=== PATIENT | female | born 1945 | race Caucasian/White ===

== ENCOUNTER → 2024-06-17 | Outpatient (CLI) | payer OTHER, SELFPAY ==
[2024-06-17 12:37] LABS: Glucose Estimated Average 103 mg/dL (80-131); Hemoglobin A1C 5.2 % Hgb (4.8-6.0)
[2024-06-17 12:39] LABS: Basophils # (Auto) 0.1 Thou/mm3 (0.0-0.2); Basophils % (Auto) 2 % (0-2.5); Eosinophils # (Auto) 0.5 Thou/mm3 (0.0-0.5); Eosinophils % (Auto) 7 % (0-10); Hematocrit 31.1 % (36.0-46.0); Hemoglobin 10.7 g/dL (12.0-16.0); Immature Granulocytes % (Auto) 0 % (0-0); Immature Granulocytes Auto 0.02 Thou/mm3 (0.00-0.00); Lymphocytes % (Auto) 27 % (10-50); Mean Corpuscular HGB Conc 34.4 g/dl (31.0-37.0); Mean Corpuscular Hemoglobin 32.1 pg (25.0-35.0); Mean Corpuscular Volume 93 fL (80-100); Monocytes # (Auto) 0.7 Thou/mm3 (0.0-0.8); Monocytes % (Auto) 10 % (0-12); Neutrophils # (Auto) 3.9 Thou/mm3 (1.8-7.7); Neutrophils % (Auto) 53 % (37-80); Nucleated Red Blood Cell % 0 /100 WBC (0); Platelet Count 236 Thou/mm3 (140-440); RDW Standard Deviation 46.2 fL (36.4-46.3); Red Blood Count 3.33 Miln/mm3 (4.00-5.20); White Blood Count 7.4 Thou/mm3 (3.6-11.0)
[2024-06-17 12:43] LABS: Collection Type, Urine Clean Catch
[2024-06-17 12:58] LABS: Alanine Aminotransferase 13 U/L (10-49); Albumin, Serum 4.5 gm/dL (3.4-4.8); Albumin/Globulin Ratio 2.1 (1.2-2.2); Alkaline Phosphatase 83 U/L (46-116); Anion Gap 9 (7-16); Aspartate Amino Transferase 17 U/L (0-34); BUN/Creatinine Ratio 20 Ratio (12-20); Bilirubin,Total 0.6 mg/dL (0.3-1.2); Blood Urea Nitrogen 20 mg/dL (9-23); Calcium 9.4 mg/dL (8.3-10.6); Calcium (Corrected) 9.4 mg/dL (8.5-10.1); Carbon Dioxide 24.9 mMol/L (20.0-31.0); Cardiac Risk Estimate 1.9 RATIO (3.7-5.6); Chloride 108 mMol/L (98-107); Cholesterol 152 mg/dL (132-200); Globulin 2.1 gm/dL (2.3-3.5); Glucose 88 mg/dL (74-106); HDL Cholesterol 79 mg/dL (40-60); LDL Cholesterol,Calculated 59 mg/dL (0-130); Osmolality,Calculated 284 (275-295); Potassium 4.1 mMol/L (3.4-5.1); Sodium 142 mMol/L (136-145); Total Protein 6.6 gm/dL (5.7-8.2); Triglycerides 68 mg/dL (30-150); eGFR 57 See Note
[2024-06-17 13:27] LABS: Bilirubin,Urine Negative (Negative); Blood,Urine Negative (Negative); Clarity,Urine Clear (Clear/Hazy); Color,Urine Lt-Yellow (Lt Yel-Yel); Glucose, Urine Negative (Negative); Ketones,Urine Negative (Negative); Leukocyte Esterase,Urine Positive (Negative); Nitrite,Urine Negative (Negative); Protein,Urine Negative (Neg - Trace); RBC,Urine 1 /hpf (0-3); Specific Gravity,Urine 1.013 (1.001-1.035); Squamous Epithelial Cell,Urine 4 /hpf (0-5); Urobilinogen,Urine Negative mg/dL (0.0-1.0); WBC,Urine 1 /hpf (0-5)
[2024-06-17 13:35] LABS: Creatinine MALB Rnd Ur 55 mg/dL (30-125); Microalbumin Creat Ratio 7 mg/gCrea (<30); Microalbumin, Random Urine 4 mg/L (0-300)
== END | disposition home or self-care (01) ==
LOC: COPL 11:53
PROVIDERS: PCP Nurse Practitioner Family; Referring Provider Nurse Practitioner Family; Visit Provider Internal Medicine Nephrology
DX: I12.9 Hypertensive chronic kidney disease with stage 1 through stage 4 chronic kidney disease, or unspecified chronic kidney disease (principal); N18.9 Chronic kidney disease, unspecified; D63.1 Anemia in chronic kidney disease; E78.5 Hyperlipidemia, unspecified; Z13.1 Encounter for screening for diabetes mellitus; Z13.220 Encounter for screening for lipoid disorders
CPT/HCPCS: 36415; 80053; 80061; 81001; 82043; 82570; 83036; 85025

== ENCOUNTER → 2024-07-29 | Outpatient (CLI) | payer OTHER, SELFPAY ==
[2024-07-29 14:24] LABS: Basophils # (Auto) 0.1 Thou/mm3 (0.0-0.2); Basophils % (Auto) 2 % (0-2.5); Eosinophils # (Auto) 0.4 Thou/mm3 (0.0-0.5); Eosinophils % (Auto) 5 % (0-10); Hematocrit 32.2 % (36.0-46.0); Immature Granulocytes % (Auto) 0 % (0-0); Immature Granulocytes Auto 0.01 Thou/mm3 (0.00-0.00); Lymphocytes # (Auto) 1.9 Thou/mm3 (1.0-4.8); Lymphocytes % (Auto) 25 % (10-50); Mean Corpuscular HGB Conc 34.2 g/dl (31.0-37.0); Mean Corpuscular Hemoglobin 31.9 pg (25.0-35.0); Mean Corpuscular Volume 93 fL (80-100); Monocytes # (Auto) 0.8 Thou/mm3 (0.0-0.8); Monocytes % (Auto) 11 % (0-12); Neutrophils # (Auto) 4.4 Thou/mm3 (1.8-7.7); Neutrophils % (Auto) 57 % (37-80); Nucleated Red Blood Cell % 0 /100 WBC (0); Platelet Count 250 Thou/mm3 (140-440); RDW Standard Deviation 45.9 fL (36.4-46.3); Red Blood Count 3.45 Miln/mm3 (4.00-5.20); White Blood Count 7.7 Thou/mm3 (3.6-11.0)
[2024-07-29 14:38] LABS: Alanine Aminotransferase 12 U/L (10-49); Albumin, Serum 4.3 gm/dL (3.4-4.8); Albumin/Globulin Ratio 1.9 (1.2-2.2); Alkaline Phosphatase 86 U/L (46-116); Anion Gap 7 (7-16); Aspartate Amino Transferase 18 U/L (0-34); BUN/Creatinine Ratio 15 Ratio (12-20); Bilirubin,Total 0.4 mg/dL (0.3-1.2); Blood Urea Nitrogen 16 mg/dL (9-23); Calcium 9.4 mg/dL (8.3-10.6); Calcium (Corrected) 9.4 mg/dL (8.5-10.1); Carbon Dioxide 25.6 mMol/L (20.0-31.0); Chloride 111 mMol/L (98-107); Creatinine (Component) 1.1 mg/dL (0.6-1.3); Globulin 2.3 gm/dL (2.3-3.5); Glucose 86 mg/dL (74-106); Osmolality,Calculated 287 (275-295); Potassium 4.2 mMol/L (3.4-5.1); Sodium 144 mMol/L (136-145); Total Protein 6.6 gm/dL (5.7-8.2); eGFR 51 See Note
== END | disposition home or self-care (01) ==
PROVIDERS: PCP Internal Medicine Nephrology; Referring Provider Internal Medicine Nephrology; Visit Provider Internal Medicine Nephrology
DX: I12.9 Hypertensive chronic kidney disease with stage 1 through stage 4 chronic kidney disease, or unspecified chronic kidney disease (principal); E78.5 Hyperlipidemia, unspecified; N18.9 Chronic kidney disease, unspecified; D63.1 Anemia in chronic kidney disease
CPT/HCPCS: 36415; 80053; 85025

== ENCOUNTER → 2024-09-23 | Outpatient (CLI) | payer OTHER, SELFPAY ==
[2024-09-23 13:30] LABS: Collection Type, Urine Clean Catch
[2024-09-23 14:27] LABS: Basophils # (Auto) 0.1 Thou/mm3 (0.0-0.2); Basophils % (Auto) 2 % (0-2.5); Eosinophils # (Auto) 0.6 Thou/mm3 (0.0-0.5); Eosinophils % (Auto) 9 % (0-10); Hematocrit 29.5 % (36.0-46.0); Hemoglobin 10.2 g/dL (12.0-16.0); Immature Granulocytes % (Auto) 0 % (0-0); Immature Granulocytes Auto 0.01 Thou/mm3 (0.00-0.00); Lymphocytes # (Auto) 1.9 Thou/mm3 (1.0-4.8); Lymphocytes % (Auto) 28 % (10-50); Mean Corpuscular HGB Conc 34.6 g/dl (31.0-37.0); Mean Corpuscular Hemoglobin 32.1 pg (25.0-35.0); Mean Corpuscular Volume 93 fL (80-100); Monocytes # (Auto) 0.9 Thou/mm3 (0.0-0.8); Monocytes % (Auto) 13 % (0-12); Neutrophils # (Auto) 3.4 Thou/mm3 (1.8-7.7); Neutrophils % (Auto) 49 % (37-80); Nucleated Red Blood Cell % 0 /100 WBC (0); Platelet Count 246 Thou/mm3 (140-440); RDW Standard Deviation 50.6 fL (36.4-46.3); Red Blood Count 3.18 Miln/mm3 (4.00-5.20); White Blood Count 6.9 Thou/mm3 (3.6-11.0)
[2024-09-23 14:31] LABS: Bacteria,Urine 1+; Bilirubin,Urine Negative (Negative); Blood,Urine Negative (Negative); Clarity,Urine Clear (Clear/Hazy); Color,Urine Lt-Yellow (Lt Yel-Yel); Glucose, Urine Negative (Negative); Ketones,Urine Negative (Negative); Leukocyte Esterase,Urine Positive (Negative); Nitrite,Urine Negative (Negative); PH,Urine 6.5 (5.0-7.0); Protein,Urine Negative (Neg - Trace); RBC,Urine 1 /hpf (0-3); Specific Gravity,Urine 1.011 (1.001-1.035); Squamous Epithelial Cell,Urine 7 /hpf (0-5); Urobilinogen,Urine Negative mg/dL (0.0-1.0); WBC,Urine 9 /hpf (0-5)
[2024-09-23 14:46] LABS: Ferritin 66 ng/mL (7.3-270.7); Iron 96 mcg/dL (50-170); Percent Iron Saturation 34 % (20-55); Total Iron Binding Capacity 278 mcg/dL (250-425); Unsaturated Iron Binding 182 (225-295)
[2024-09-23 14:54] LABS: Creatinine MALB Rnd Ur 68 mg/dL (30-125); Microalbumin, Random Urine < 3 mg/L (0-300)
[2024-09-23 14:55] LABS: Alanine Aminotransferase 10 U/L (10-49); Albumin, Serum 4.1 gm/dL (3.4-4.8); Albumin/Globulin Ratio 1.8 (1.2-2.2); Alkaline Phosphatase 84 U/L (46-116); Anion Gap 11 (7-16); Aspartate Amino Transferase 17 U/L (0-34); BUN/Creatinine Ratio 15 Ratio (12-20); Bilirubin,Total 0.7 mg/dL (0.3-1.2); Blood Urea Nitrogen 18 mg/dL (9-23); Calcium 8.5 mg/dL (8.3-10.6); Calcium (Corrected) 8.5 mg/dL (8.5-10.1); Carbon Dioxide 25.2 mMol/L (20.0-31.0); Chloride 109 mMol/L (98-107); Cholesterol 149 mg/dL (132-200); Creatinine (Component) 1.2 mg/dL (0.6-1.3); Globulin 2.3 gm/dL (2.3-3.5); Glucose 87 mg/dL (74-106); HDL Cholesterol 75 mg/dL (40-60); LDL Cholesterol,Calculated 62 mg/dL (0-130); Osmolality,Calculated 289 (275-295); Potassium 4.3 mMol/L (3.4-5.1); Sodium 145 mMol/L (136-145); Total Protein 6.4 gm/dL (5.7-8.2); Triglycerides 61 mg/dL (30-150); eGFR 46 See Note
== END | disposition home or self-care (01) ==
LOC: COPL 12:57
PROVIDERS: PCP Family Medicine; Referring Provider Internal Medicine Nephrology; Visit Provider Internal Medicine Nephrology
DX: I12.9 Hypertensive chronic kidney disease with stage 1 through stage 4 chronic kidney disease, or unspecified chronic kidney disease (principal); N18.9 Chronic kidney disease, unspecified; D63.1 Anemia in chronic kidney disease; E78.5 Hyperlipidemia, unspecified; N39.0 Urinary tract infection, site not specified
CPT/HCPCS: 36415; 80053; 80061; 81001; 82043; 82570; 82728; 83540; 83550; 85025

== ENCOUNTER → 2025-02-27 | Outpatient (CLI) | payer OTHER, SELFPAY ==
[2025-02-27 13:16] LABS: Basophils # (Auto) 0.1 Thou/mm3 (0.0-0.2); Basophils % (Auto) 1 % (0-2.5); Eosinophils # (Auto) 0.4 Thou/mm3 (0.0-0.5); Eosinophils % (Auto) 6 % (0-10); Hematocrit 31.3 % (36.0-46.0); Hemoglobin 10.6 g/dL (12.0-16.0); Immature Granulocytes Auto 0.02 Thou/mm3 (0.00-0.00); Lymphocytes # (Auto) 1.7 Thou/mm3 (1.0-4.8); Lymphocytes % (Auto) 22 % (10-50); Mean Corpuscular HGB Conc 33.9 g/dl (31.0-37.0); Mean Corpuscular Hemoglobin 32.2 pg (25.0-35.0); Mean Corpuscular Volume 95 fL (80-100); Monocytes # (Auto) 0.8 Thou/mm3 (0.0-0.8); Monocytes % (Auto) 10 % (0-12); Neutrophils # (Auto) 4.7 Thou/mm3 (1.8-7.7); Neutrophils % (Auto) 61 % (37-80); Nucleated Red Blood Cell # 0.00 Thou/mm3 (0.00-0.00); Nucleated Red Blood Cell % 0 /100 WBC (0); Platelet Count 225 Thou/mm3 (140-440); RDW Standard Deviation 46.5 fL (36.4-46.3); Red Blood Count 3.29 Miln/mm3 (4.00-5.20); White Blood Count 7.7 Thou/mm3 (3.6-11.0)
[2025-02-27 13:28] LABS: Alanine Aminotransferase 24 U/L (10-49); Albumin, Serum 4.2 gm/dL (3.4-4.8); Albumin/Globulin Ratio 1.9 (1.2-2.2); Alkaline Phosphatase 101 U/L (46-116); Anion Gap 9 (7-16); Aspartate Amino Transferase 27 U/L (0-34); BUN/Creatinine Ratio 13 Ratio (12-20); Bilirubin,Total 0.5 mg/dL (0.3-1.2); Blood Urea Nitrogen 14 mg/dL (9-23); Calcium 8.8 mg/dL (8.3-10.6); Calcium (Corrected) 8.8 mg/dL (8.5-10.1); Carbon Dioxide 25.7 mMol/L (20.0-31.0); Chloride 110 mMol/L (98-107); Creatinine (Component) 1.1 mg/dL (0.6-1.3); Globulin 2.2 gm/dL (2.3-3.5); Glucose 92 mg/dL (74-106); Osmolality,Calculated 289 (275-295); Potassium 4.0 mMol/L (3.4-5.1); Sodium 145 mMol/L (136-145); Total Protein 6.4 gm/dL (5.7-8.2); eGFR 51 See Note
== END | disposition home or self-care (01) ==
PROVIDERS: PCP Nurse Practitioner Family; Referring Provider Internal Medicine Nephrology; Visit Provider Internal Medicine Nephrology
DX: I12.9 Hypertensive chronic kidney disease with stage 1 through stage 4 chronic kidney disease, or unspecified chronic kidney disease (principal); N18.9 Chronic kidney disease, unspecified; D63.1 Anemia in chronic kidney disease; E78.5 Hyperlipidemia, unspecified
CPT/HCPCS: 36415; 80053; 85025